=== PATIENT | female | born 1955 | race Caucasian/White ===

== ENCOUNTER 2019-06-01 13:56 | Outpatient (CLI) | payer BC ==
[~2019-06-01 13:56] MED LIST: Gadobenate Dimeglumine 529 MG/1 ML (20ML VIAL) ONE
--- NOTE | 2019-06-01 15:42 | MRI ---
MRI Abdomen W WO Con History: R 94.5 abnormal liver function tests Comparison: None. Findings: Mild hepatic steatosis with hepatic back fracture of 12.4% and hepatic fat percentage of 10 .5%. No abnormal arterial enhancing hepatic mass. The portal vein is patent. Spleen is unremarkable. Pancreas is unremarkable. Moderate atherosclerotic plaque of the aorta. No hydronephrosis no intrahepatic or extrahepatic biliary dilatation. No jacobo hepatis adenopathy. No lumbar spine compression fracture. No dilated loops of bowel in the abdomen. Mild compressive atelectasis left lung base. Impression: 1. Mild hepatic steatosis with hepatic fat fraction 12.4% and hepatic fat percentage 10.5%. 2. No abnormal hepatic enhancing mass. 3. No intrahepatic or extra hepatic biliary dilatation. 4. 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
== END 2019-06-01 13:57 | disposition home or self-care (01) ==
LOC: BICMRI 13:56
PROVIDERS: ATTEND Internal Medicine Gastroenterology
DX: R94.5 Abnormal results of liver function studies (principal); R60.0 Localized edema; R19.7 Diarrhea, unspecified; K76.0 Fatty (change of) liver, not elsewhere classified; K55.059 Acute (reversible) ischemia of intestine, part and extent unspecified; I77.1 Stricture of artery
CPT/HCPCS: 74183; 82565; A9577

== ENCOUNTER 2019-06-23 09:04 | Outpatient (CLI) | payer BC ==
--- NOTE | 2019-06-23 09:59 | CT ---
CT ANGIOGRAM CHEST: HISTORY: Malignant neoplasm of the lung. Lung cancer. COPD. COMPARISON: None. TECHNIQUE: CT angiogram of the chest is performed in the axial plane. Three-dimensional reformatted images are submitted for interpretation. FINDINGS: Mediastinum: No mass, lymphadenopathy or hematoma. Heart: Normal size. No significant pericardial fluid. Aorta: No aneurysm. Atherosclerosis of the descending thoracic aorta and visualized abdominal aorta . Upper solid abdominal viscera: No abnormal enhancement. Trachea and central bronchi: Trachea and left bronchus are patent. Evidence of resection of the rig ht upper lobe bronchus. Right mainstem bronchus is patent. Pleural spaces: No effusion. Lung parenchyma: Findings compatible with a right upper lobectomy. No suspicious masses or consolid ation in the lung parenchyma. Linear opacities in the middle lobe and left lower lobe may represent subsegmental atelectasis. The possibility of a left lower lobe infiltrate cannot be entire ly excluded. Pneumothorax: None. Osseous structures: No lytic or blastic lesions. Pulmonary arteries: Adequate contrast opacification pulmonary arterial system to the level of segment al arteries. No filling defect to suggest pulmonary embolism. Prominence of the central pulmonary arteries suggesting pulmonary arterial hypertension. IMPRESSION: 1. Right upper lobectomy. 2. Pulmonary hypertension. 3. Adequate contrast opacification of the pulmonary arterial system to the level of the segmental art eries. No filling defect to suggest thromboembolism. Transcribed Date/Time: 06/23/2019 10:14 AM
== END 2019-06-23 09:05 | disposition home or self-care (01) ==
LOC: CT 09:04
PROVIDERS: ATTEND Thoracic Surgery (Cardiothoracic Vascular Surgery)
DX: C34.11 Malignant neoplasm of upper lobe, right bronchus or lung (principal); I27.20 Pulmonary hypertension, unspecified; Z98.890 Other specified postprocedural states
CPT/HCPCS: 71275

== ENCOUNTER 2020-03-27 12:51 | Outpatient (CLI) | payer BC ==
--- NOTE | 2020-03-27 13:22 | RAD ---
PA AND LATERAL VIEWS CHEST: HISTORY: Dyspnea. COMPARISON: 08/31/2016. FINDINGS: The heart size is normal. The aorta is tortuous. The lungs are expanded without lobar consolidation , pneumothoraces, or pleural effusions. Old healed right-sided rib fracture is again seen. IMPRESSION: No acute process. POS: JOHNS[facility]
== END 2020-03-27 12:52 | disposition home or self-care (01) ==
LOC: RAD 12:51
PROVIDERS: ATTEND Internal Medicine Critical Care Medicine
DX: R06.00 Dyspnea, unspecified (principal)
CPT/HCPCS: 71046

== ENCOUNTER 2021-09-20 11:26 | Outpatient (CLI) | payer BC | END 2021-09-20 11:27 | disposition home or self-care (01) | LOC: BICCT 11:26 | PROVIDERS: ATTEND Internal Medicine Critical Care Medicine | DX: M50.20 Other cervical disc displacement, unspecified cervical region (principal); J44.9 Chronic obstructive pulmonary disease, unspecified; R91.1 Solitary pulmonary nodule; J98.4 Other disorders of lung; M47.812 Spondylosis without myelopathy or radiculopathy, cervical region; S22.41XD Multiple fractures of ribs, right side, subsequent encounter for fracture with routine healing; Z98.890 Other specified postprocedural states | CPT/HCPCS: 71260; 72050 ==

== ENCOUNTER 2021-10-15 14:23 | Outpatient (CLI) | payer BC ==
[2021-10-15 15:58] LABS: Hemoglobin 12.3 g/dL (12.0-15.5); Mean Corpuscular HGB CONC 33.4 g/dL (32.0-36.0); Mean Corpuscular Hemoglobin 37.7 pg (27.0-33.0); Mean Corpuscular Volume 112.9 fl (81.6-98.3); Mean Platelet Volume 10.3 fl (7.4-10.4); Platelet Count 188 10x3/uL (150-450); Red Blood Cell (RBC) Count 3.26 10x6/uL (3.90-5.03); White Blood Cell (WBC) Count 4.4 10x3/uL (3.5-10.5)
[2021-10-15 16:14] LABS: PTT 26.2 sec (22.0-33.0); Prothrombin Time 11.4 sec (9.5-12.1)
[2021-10-15 16:16] LABS: Anion Gap 16 mmol/L (10-20); BUN (Urea Nitrogen) 9 mg/dL (9.8-20.1); Calc. Creatinine Clearance 0 mL/min (70-130); Calcium 8.6 mg/dL (7.8-10.44); Carbon Dioxide 28 mmol/L (23-31); Chloride 102 mmol/L (98-107); Glucose 86 mg/dL (80-115); Potassium 3.9 mmol/L (3.5-5.1); Sodium 142 mmol/L (136-145)
[2021-10-16 11:04] LABS: SARS-CoV-2 PCR by NAA Not Detected (NotDetected)
== END 2021-10-15 14:24 | disposition home or self-care (01) ==
LOC: LABBT 14:23
PROVIDERS: ATTEND Neurological Surgery
DX: Z01.812 Encounter for preprocedural laboratory examination (principal); G95.9 Disease of spinal cord, unspecified; Z20.822 Contact with and (suspected) exposure to COVID-19
CPT/HCPCS: 80048; 85027; 85610; 85730; U0003; U0005

== ENCOUNTER 2021-10-18 06:09 | Inpatient (IN) | payer BC ==
[2021-10-16 15:21] VITALS: BMI 19.9
[2021-10-18] MEDS ORDERED: EPINEPHrine 1 MG/ML AMP ONE (06:24)
[2021-10-18] MEDS ORDERED: Thrombin 5000 UNITS/5 ML VIAL ONE (06:24)
[2021-10-18] MEDS ORDERED: Neomycin-Polymyxin 1 ML AMP ONE (06:24)
[2021-10-18] MEDS ORDERED: Bupivacaine PF 0.5% 30 ML VIAL ONE (06:24)
[2021-10-18] MEDS ORDERED: Bacitracin Zinc Ointment 30 gm TUBE ONE (06:24)
[2021-10-18] MEDS ORDERED: Midazolam HCl 2 mg/2 ml Vial ONE (06:26)
[2021-10-18] MEDS ORDERED: Fentanyl 250 MCG/5 ML VIAL ONE (06:26)
[2021-10-18] MEDS ORDERED: ceFAZolin 2 GM/DEX 5% 100 ML BAG ONE (06:45)
[2021-10-18] MEDS ORDERED: Glycopyrrolate 0.2 MG/ML 5 ML SYRINGE ONE (07:10)
[2021-10-18] MEDS ORDERED: Ondansetron PF 4 MG/2 ML Vial ONE (07:10)
[2021-10-18] MEDS ORDERED: ePHEDrine 50 MG/ML VIAL ONE (07:10)
[2021-10-18] MEDS ORDERED: PROPOFOL 200 MG/20 ML VIAL ONE (07:10)
[2021-10-18] MEDS ORDERED: Dexamethasone 20 MG/5 ML VIAL ONE (07:10)
[2021-10-18] MEDS ORDERED: Rocuronium Bromide 10 MG/ML (10ML VIAL) ONE (07:10)
[2021-10-18] MEDS ORDERED: Lidocaine 1% PF 5 ML VIAL ONE (07:10)
[2021-10-18] MEDS ORDERED: Phenylephrine 10 MG/ML VIAL ONE (07:10)
[2021-10-18] MEDS ORDERED: Promethazine HCl 25 MG/ML VIAL IM PRN ×2 (10:44→11:07)
[2021-10-18] MEDS ORDERED: diphenhydrAMINE 50 MG/ML VIAL IVP PRN (10:44)
[2021-10-18] MEDS ORDERED: Ondansetron PF 4 MG/2 ML Vial IVP PRN (10:44)
[2021-10-18] MEDS ORDERED: Promethazine 25 MG TAB PO PRN (10:44)
[2021-10-18] MEDS ORDERED: Milk Of Magnesia 30 ML UDCUP PO PRN (10:44)
[2021-10-18] MEDS ORDERED: Mag-Al 1200 mg/1200 mg/30 ML UDCUP PO PRN (10:44)
[2021-10-18] MEDS ORDERED: HYDROcodone/Acetaminophen 7.5/325 mg Tablet PO PRN (10:44)
[2021-10-18] MEDS ORDERED: Bisacodyl 10 MG SUPP PR PRN (10:44)
[2021-10-18] MEDS ORDERED: PACU-Morphine 4MG/ML VIAL SLOW IVP PRN (11:07)
[2021-10-18] MEDS ORDERED: Promethazine HCl 25 MG/ML VIAL IVPB PRN (11:07)
[2021-10-18] MEDS ORDERED: HYDROmorphone 2 MG/ML VIAL SLOW IVP PRN (11:07)
[2021-10-18] MEDS ORDERED: Ketorolac Tromethamine 30 MG/ML VIAL IVP PRN (11:07)
[2021-10-18] MEDS ORDERED: Ondansetron HCl/PF 4 MG/2 ML Vial IVP PRN (11:07)
[2021-10-18] MEDS ORDERED: Fentanyl 100 MCG/2 ML VIAL ONE (11:35)
[2021-10-18] MEDS: Sodium Chloride 0.9% 1,000 ML IV SCH (12:59)
[2021-10-18] MEDS: HYDROcodone/Acetaminophen 10/325 mg Tablet PO PRN (13:16)
[2021-10-18] MEDS: Morphine 4 MG/ML VIAL SLOW IVP PRN (13:40)
[2021-10-18] MEDS: Oxybutynin 5 MG TAB PO SCH ×2 (15:25→20:27)
[2021-10-18] MEDS: ceFAZolin Sodium/D5W 2 GM in Premix Bag 1 BAG IVPB SCH ×2 (15:29→23:06)
[2021-10-18] MEDS ORDERED: FLU VACC QS2021-22(6MOS UP)/PF 60 MCG/0.5 ML SYRINGE IM ONE (18:00)
[2021-10-18] MEDS: Atorvastatin Calcium 20 MG TAB PO SCH (20:26)
[2021-10-18] MEDS: Gabapentin 100 MG CAP PO SCH (20:27)
[2021-10-18] MEDS: Prenatal Vitamin 1 TAB PO SCH (20:28)
[2021-10-18] MEDS: Acetaminophen/Codeine 30-300mg Tablet PO PRN (20:40)
[2021-10-18] MEDS: tiZANidine HCl 4 MG TAB PO PRN (20:42)
[2021-10-18] MEDS ORDERED: BIMATOPROST EA EYE SCH (21:00)
[2021-10-19] MEDS: Acetaminophen 325 MG TAB PO PRN ×2 (00:25→15:29)
[2021-10-19] MEDS: Sodium Chloride 0.9% 1,000 ML IV SCH (00:32)
[2021-10-19] MEDS: HYDROcodone/Acetaminophen 10/325 mg Tablet PO PRN ×2 (04:08→12:13)
[2021-10-19] MEDS: Levothyroxine Sodium 50 MCG TAB PO SCH (04:31)
[2021-10-19] MEDS: Gabapentin 100 MG CAP PO SCH ×2 (08:52→20:53)
[2021-10-19] MEDS: Oxybutynin 5 MG TAB PO SCH ×3 (08:52→21:01)
[2021-10-19] MEDS: Loratadine 10 MG TAB PO SCH (08:52)
[2021-10-19] MEDS: tiZANidine HCl 4 MG TAB PO PRN (21:01)
[2021-10-19] MEDS: Acetaminophen/Codeine 30-300mg Tablet PO PRN (21:02)
[2021-10-19] MEDS: Atorvastatin Calcium 20 MG TAB PO SCH (21:02)
[2021-10-19] MEDS: Prenatal Vitamin 1 TAB PO SCH (21:04)
[2021-10-20] MEDS: Morphine 4 MG/ML VIAL SLOW IVP PRN (02:21)
[2021-10-20] MEDS: Levothyroxine Sodium 50 MCG TAB PO SCH (05:02)
[2021-10-20] MEDS: Gabapentin 100 MG CAP PO SCH ×2 (08:11→20:43)
[2021-10-20] MEDS: HYDROcodone/Acetaminophen 10/325 mg Tablet PO PRN ×2 (08:12→11:28)
[2021-10-20] MEDS: Loratadine 10 MG TAB PO SCH (08:13)
[2021-10-20] MEDS: Oxybutynin 5 MG TAB PO SCH ×3 (08:13→20:44)
[2021-10-20 09:49] LABS: Bacteria/HPF None Seen HPF (None Seen); Bilirubin Negative (Negative); Blood, Urine Negative (Negative); Clarity Clear (Clear); Glucose, Urine (Dipstick) Normal (Negative); Ketone, Urine Negative (Negative); Leukocyte 500 Leu/uL (Negative); Nitrite Negative (Negative); Protein, Urine (Dipstick) Negative (Neg-Trace); RBC/HPF 0-3 HPF (0-3); Specific Gravity, Urine 1.011 (1.002-1.036); Squamous Epithelial 0-3 HPF (0-3); Urobilinogen Normal mg/dL (Less than 2)
[2021-10-20 10:02] LABS: Urine Culture Reflex Yes Yes
[2021-10-20] MEDS: Acetaminophen/Codeine 30-300mg Tablet PO PRN (19:03)
[2021-10-20] MEDS: tiZANidine HCl 4 MG TAB PO PRN (19:03)
[2021-10-20] MEDS: buPROPion HCl 100 MG TAB PO SCH (20:43)
[2021-10-20] MEDS: Prenatal Vitamin 1 TAB PO SCH (20:44)
[2021-10-20] MEDS: Atorvastatin Calcium 20 MG TAB PO SCH (20:44)
[2021-10-21] MEDS ORDERED: Lorazepam 1 MG TAB PO PRN
[2021-10-21] MEDS: HYDROcodone/Acetaminophen 10/325 mg Tablet PO PRN ×2 (00:06→16:16)
[2021-10-21] MEDS: Levothyroxine Sodium 50 MCG TAB PO SCH (05:22)
[2021-10-21] MEDS: Acetaminophen/Codeine 30-300mg Tablet PO PRN (05:22)
[2021-10-21] MEDS: tiZANidine HCl 4 MG TAB PO PRN (05:22)
[2021-10-21 07:46] LABS: #Eosinphils 0.1 thou/uL (0.0-0.7); #Lymphocytes 1.2 thou/uL (1.20-3.40); #Monocytes 0.6 thou/uL (0.11-0.59); #Neutrophils 3.5 thou/uL (1.40-6.50); %Basophils 0.7 % (0.0-1.0); %Eosinophils 1.5 % (0.0-10.0); %Lymphocytes 21.7 % (21.0-51.0); %Monocytes 11.1 % (0.0-10.0); Hemoglobin 12.5 g/dL (12.0-16.0); Mean Corpuscular Hemoglobin 38.1 pg (27.0-31.0); Mean Platelet Volume 7.4 fL (7.4-10.4); Platelet Count 170 thou/uL (130-400); RBC Distribution Width 12.3 % (11.5-14.5); Red Blood Cell (RBC) Count 3.27 mill/uL (4.20-5.40); White Blood Cell (WBC) Count 5.4 thou/uL (4.8-10.8)
[2021-10-21 07:59] LABS: Anion Gap 14 mmol/L (10-20); BUN (Urea Nitrogen) 9 mg/dL (9.8-20.1); Calc. Creatinine Clearance 92 mL/min (70-130); Calcium 8.6 mg/dL (7.8-10.44); Carbon Dioxide 29 mmol/L (23-31); Chloride 93 mmol/L (98-107); Glucose 90 mg/dL (80-115); Sodium 133 mmol/L (136-145)
[2021-10-21] MEDS ORDERED: Potassium Chloride 20 MEQ in Premix Bag 1 BAG IVPB SCH (08:05)
[2021-10-21] MEDS ORDERED: Potassium Chloride 20 MEQ TAB PO SCH (08:15)
[2021-10-21] MEDS ORDERED: Potassium Chloride 10 MEQ in Premix Bag 1 BAG IVPB SCH (08:15)
[2021-10-21] MEDS: buPROPion HCl 100 MG TAB PO SCH ×2 (08:45→20:47)
[2021-10-21] MEDS: Gabapentin 100 MG CAP PO SCH ×2 (08:47→20:47)
[2021-10-21] MEDS: Oxybutynin 5 MG TAB PO SCH ×3 (08:47→20:47)
[2021-10-21] MEDS ORDERED: Thiamine HCl 200 MG/2 ML VIAL SLOW IVP SCH (09:00)
[2021-10-21] MEDS ORDERED: Loratadine 10 MG TAB PO SCH (09:00)
[2021-10-21] MEDS ORDERED: Electrolyte Replacement Protocol 1 EACH FS SCH (09:45)
[2021-10-21 10:26] LABS: Magnesium 0.9 mg/dL (1.6-2.6)
[2021-10-21] MEDS ORDERED: Magnesium Sulfate 4 GM in Sodium Chloride 0.9% 250 ML 250 ML IVPB SCH (10:30)
[2021-10-21 10:51] LABS: Bilirubin Negative (Negative); Blood, Urine Negative (Negative); Clarity Clear (Clear); Glucose, Urine (Dipstick) Normal (Negative); Ketone, Urine Negative (Negative); Leukocyte 500 Leu/uL (Negative); Nitrite Negative (Negative); Protein, Urine (Dipstick) Negative (Neg-Trace); RBC/HPF 0-3 HPF (0-3); Specific Gravity, Urine 1.008 (1.002-1.036); Squamous Epithelial 0-3 HPF (0-3); Urobilinogen Normal mg/dL (Less than 2)
[2021-10-21 10:52] LABS: Bacteria/HPF 1+ HPF (None Seen)
[2021-10-21 10:53] LABS: Urine Culture Reflex Yes Yes
[2021-10-21] MEDS ORDERED: CEFAZOLIN 1 GM in Sodium Chloride 0.9% 100 ML IVPB SCH (11:30)
[2021-10-21] MEDS ORDERED: Electrolyte Replacement Protocol 1 EACH FS PRN (11:45)
[2021-10-21] MEDS ORDERED: Ondansetron ODT 4 MG TAB PO PRN (11:45)
[2021-10-21] MEDS ORDERED: Lorazepam 2 MG/ML VIAL IM PRN (11:45)
[2021-10-21] MEDS: Lorazepam 1 MG TAB PO SCH ×4 (11:47→23:59)
[2021-10-21] MEDS: Thiamine HCl 200 MG/2 ML VIAL SLOW IVP SCH (11:48)
[2021-10-21] MEDS ORDERED: Electrolyte Replacement Protocol FS PRN (14:00)
[2021-10-21 15:03] LABS: Potassium 3.5 mmol/L (3.5-5.1)
[2021-10-21] MEDS: Prenatal Vitamin 1 TAB PO SCH (20:47)
[2021-10-21] MEDS: Atorvastatin Calcium 20 MG TAB PO SCH (20:47)
[2021-10-22] MEDS: tiZANidine HCl 4 MG TAB PO PRN (03:25)
[2021-10-22] MEDS: Lorazepam 1 MG TAB PO SCH ×2 (05:05→16:09)
[2021-10-22] MEDS: Levothyroxine Sodium 50 MCG TAB PO SCH (05:05)
[2021-10-22 07:52] VITALS: TEMP 97.7
[2021-10-22] MEDS ORDERED: Multivit, Therapeutic 1 TAB PO SCH (09:00)
[2021-10-22] MEDS ORDERED: Folic Acid 1 MG TAB PO SCH (09:00)
[2021-10-22] MEDS: buPROPion HCl 100 MG TAB PO SCH (09:17)
[2021-10-22] MEDS: Loratadine 10 MG TAB PO SCH (09:17)
[2021-10-22] MEDS: Gabapentin 100 MG CAP PO SCH (09:17)
[2021-10-22] MEDS: Oxybutynin 5 MG TAB PO SCH ×2 (09:17→16:09)
[2021-10-22 09:52] LABS: #Eosinphils 0.1 thou/uL (0.0-0.7); #Lymphocytes 0.8 thou/uL (1.20-3.40); #Monocytes 0.6 thou/uL (0.11-0.59); #Neutrophils 3.3 thou/uL (1.40-6.50); %Eosinophils 1.2 % (0.0-10.0); %Lymphocytes 16.1 % (21.0-51.0); %Monocytes 12.4 % (0.0-10.0); %Neutrophils 70.2 % (42.0-75.0); Hemoglobin 12.9 g/dL (12.0-16.0); Mean Corpuscular HGB CONC 34.1 g/dL (32.0-36.0); Mean Corpuscular Hemoglobin 39.1 pg (27.0-31.0); Platelet Count 191 thou/uL (130-400); RBC Distribution Width 12.1 % (11.5-14.5); Red Blood Cell (RBC) Count 3.31 mill/uL (4.20-5.40); White Blood Cell (WBC) Count 4.7 thou/uL (4.8-10.8)
[2021-10-22 10:19] LABS: Anion Gap 15 mmol/L (10-20); BUN (Urea Nitrogen) 8 mg/dL (9.8-20.1); Calc. Creatinine Clearance 92 mL/min (70-130); Carbon Dioxide 28 mmol/L (23-31); Chloride 92 mmol/L (98-107); Glucose 109 mg/dL (80-115); Magnesium 1.4 mg/dL (1.6-2.6); Potassium 3.5 mmol/L (3.5-5.1); Sodium 131 mmol/L (136-145)
[2021-10-22] MEDS: Thiamine HCl 200 MG/2 ML VIAL SLOW IVP SCH (11:42)
[2021-10-22] MEDS ORDERED: Lorazepam 1 MG TAB PO PRN (11:45)
[2021-10-22] MEDS ORDERED: Magnesium Sulfate 4 GM in Sodium Chloride 0.9% 250 ML 250 ML IVPB SCH (12:00)
[2021-10-22] MEDS ORDERED: Potassium Chloride 20 MEQ TAB PO SCH (12:00)
[2021-10-22 15:58] VITALS: BP 171/96
[2021-10-23] MEDS ORDERED: Lorazepam 0.5 MG TAB PO SCH (06:00)
[2021-10-23] MEDS ORDERED: Lorazepam 1 MG TAB PO PRN (11:45)
[2021-10-24] MEDS ORDERED: Lorazepam 0.5 MG TAB PO PRN (06:00)
[2021-10-24] MEDS ORDERED: Thiamine 100 MG TAB PO SCH (09:00)
== END 2021-10-22 17:24 | DRG 519 ==
LOC: SDC 06:09 → T4-B 10:44 → SURG A 10-21 14:24
PROVIDERS: ADMIT Neurological Surgery; ATTEND Neurological Surgery
PROC: 00NW0ZZ Release Cervical Spinal Cord, Open Approach (ICD-10-PCS; principal; 2021-10-18)
PROC: 01N10ZZ Release Cervical Nerve, Open Approach (ICD-10-PCS; 2021-10-18)
PROC: HZ2ZZZZ Detoxification Services for Substance Abuse Treatment (ICD-10-PCS; 2021-10-21)
DX: M48.02 Spinal stenosis, cervical region (principal); G99.2 Myelopathy in diseases classified elsewhere; F10.231 Alcohol dependence with withdrawal delirium; N39.0 Urinary tract infection, site not specified; C34.12 Malignant neoplasm of upper lobe, left bronchus or lung; L97.919 Non-pressure chronic ulcer of unspecified part of right lower leg with unspecified severity; Z20.822 Contact with and (suspected) exposure to COVID-19; K21.9 Gastro-esophageal reflux disease without esophagitis; F17.210 Nicotine dependence, cigarettes, uncomplicated; H40.9 Unspecified glaucoma; I10 Essential (primary) hypertension; J44.9 Chronic obstructive pulmonary disease, unspecified; I73.9 Peripheral vascular disease, unspecified; R32 Unspecified urinary incontinence; E87.6 Hypokalemia; E83.42 Hypomagnesemia; B96.20 Unspecified Escherichia coli [E. coli] as the cause of diseases classified elsewhere; Z98.42 Cataract extraction status, left eye; Z98.41 Cataract extraction status, right eye; Z90.2 Acquired absence of lung [part of]; Z85.118 Personal history of other malignant neoplasm of bronchus and lung; Z82.49 Family history of ischemic heart disease and other diseases of the circulatory system; Z80.8 Family history of malignant neoplasm of other organs or systems; Z86.73 Personal history of transient ischemic attack (TIA), and cerebral infarction without residual deficits; Z01.812 Encounter for preprocedural laboratory examination
CPT/HCPCS: 36415; 76000; 80048; 81001; 83735; 84425; 85025; 85027; 85610; 85730; 87086; J0171; J0744; J1100; J2250; J2270; J2370; J2405; J2704; J3010; J3370; J3411; J3475; J3480; J3490; J7050; J7620; S0020; U0003; U0005